=== PATIENT | male | born 1980 | race Caucasian/White ===

== ENCOUNTER 2017-09-27 04:36 | Emergency (ER) | payer OTHER ==
[~2017-09-27] VITALS: Ht 190.5 cm; Wt 109.4 kg
[2017-09-27 04:43] VITALS: TEMP 36.4; Ht 190.5 cm; Wt 109.4 kg
[2017-09-27] MEDS ORDERED: ONDANSETRON INJ 2 MG/ML 2 ML VIAL IV STA ×2 (05:04→06:18)
[2017-09-27] MEDS ORDERED: SODIUM CHLORIDE 0.9% 1000ML 1,000 ML IV STA (05:04)
[2017-09-27 05:48] LABS: BASO % 0.1 %; BASO ABS # 0.01 K/uL (0-0.2); EOS % 0.4 %; EOS ABS # 0.06 K/uL (0-0.5); HEMATOCRIT 48.7 % (42-52); IG# 0.04 K/uL (0.00-0.02); LYMPH % 2.3 %; LYMPH ABS # 0.36 K/uL (1.2-3.4); MEAN CELL VOLUME 87.1 fL (80-100); MEAN CORPUSCULAR HEMOGLOBIN 30.4 pg (25-34); MEAN CORPUSCULAR HGB CONC 34.9 g/dl (32-36); MEAN PLATELET VOLUME 9.3 fL (7.4-10.4); MONO % 1.9 %; MONO ABS # 0.29 K/uL (0.11-0.59); NEUT ABS # 14.71 K/uL (1.4-6.5); PLATELET COUNT 318 K/uL (130-400); RED CELL DISTRIBUTION WIDTH CV 12.6 % (11.5-14.5); RED CELL DISTRIBUTION WIDTH SD 40.3 fL (36.4-46.3); WHITE BLOOD COUNT 15.47 K/uL (4.8-10.8)
[2017-09-27 06:05] LABS: ALBUMIN 4.2 gm/dl (3.4-5.0); CALCIUM 9.1 mg/dl (8.5-10.1); CREATININE 1.04 mg/dl (0.60-1.40); POTASSIUM 3.8 mmol/L (3.5-5.1)
[2017-09-27 06:08] LABS: TOTAL PROTEIN 8.5 gm/dl (6.4-8.2)
[2017-09-27 06:14] LABS: INFLUENZA B ANTIGEN Neg for Influ B (NEG)
[2017-09-27] MEDS ORDERED: ACETAMINOPHEN 325 MG TAB PO STA (06:18)
--- NOTE | 2017-09-27 07:10 | DIAGNOSTIC IMAGING REPORT ---
PA CHEST WITH ABDOMINAL SERIES CLINICAL HISTORY: Nausea and vomiting. Dizziness. FINDINGS: A PA chest radiograph is obtained. No prior studies are available for comparison at the time of dictation. The cardiomediastinal silhouette is unremarkable. The lungs and pleural spaces are clear. No pneumothorax is seen. The bony thorax is grossly intact. Supine and erect abdominal radiographs are obtained. No prior studies are available for comparison at the time of dictation. There is a nonobstructed abdominal bowel gas pattern. No evidence of intraperitoneal free air is seen. There are no abnormal abdominal calcifications. The lumbosacral spine and bony pelvis appear intact. IMPRESSION: 1. No active disease in the chest. 2. Nonobstructed abdominal bowel gas pattern. Electronically signed by: Jeremy Yung M.D. 09/27/2017 7:08 AM Dictated Date/Time: 09/27/2017 7:08 AM
--- NOTE | 2017-09-27 07:21 | EMERGENCY ROOM VISIT NOTE ---
History Report prepared by Cherylibtrev: Jacob Zazueta Under the Supervision of: Dr. Ernestina New D.O. First contact with patient: 04:47 Chief Complaint: FLU LIKE SX Stated Complaint: UNCONTROLLABLE VOMITING,NAUSEA,DIZZINESS History of Present Illness The patient is a 37 year old male who presents to the Emergency Room with complaints of persistent generalized illness beginning shortly prior to arrival. The patient's symptoms include vomiting, nausea, diarrhea, chills, and diaphoresis. His symptoms began suddenly. The patient states that he has been vomiting every 5-8 minutes since he started. 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 He notes that he does not sleep a lot. The patient denies abdominal pain, urinary symptoms, chest pain, SOB, rashes, or fevers. He states that he has seen some blood with wiping, but feels that this from "excessive wiping" due to having loose stool for several weeks. He has no known exposure to C Diff. The patient denies recent travel, or medication changes. Source of History: patient Onset: Shortly prior to arrival Position: other (generalized ) Quality: other (illness) Timing: other (persistent) Associated Symptoms: + chills, + diaphoresis, + nausea, + vomiting, + diarrhea, No fevers, No chest pain, No SOB, No abdominal pain, No hematochezia, No urinary symptoms, No rash Review of Systems See HPI for pertinent positives & negatives. A total of 10 systems reviewed and were otherwise negative. Past Medical & Surgical Medical Problems: (1) No Known Active Medical Problems Family History No pertinent family history stated. Social History Smoking Status: Never Smoker Marital Status: Housing Status: lives with family Occupation Status: employed Current/Historical Medications No Active Prescriptions or Reported Meds Allergies Coded Allergies: No Known Allergies (Unverified , 09/27/17) Physical Exam Vital Signs Date Time Temp Pulse Resp B/P (MAP) Pulse Ox O2 Delivery O2 Flow Rate FiO2 09/27/17 09:01 126/65 09/27/17 08:44 82 21 94 09/27/17 08:31 118/68 09/27/17 08:14 82 20 95 09/27/17 08:01 119/63 09/27/17 08:00 84 18 119/63 96 Room Air 09/27/17 07:44 87 21 95 09/27/17 07:31 115/66 09/27/17 07:14 87 21 96 09/27/17 07:01 124/72 09/27/17 06:44 94 21 95 09/27/17 06:14 95 23 96 09/27/17 06:09 138/73 09/27/17 05:51 93 25 97 Room Air 09/27/17 05:36 87 20 98 09/27/17 05:31 132/72 09/27/17 05:21 89 21 97 09/27/17 05:06 94 23 99 09/27/17 05:01 150/91 09/27/17 04:54 137/78 09/27/17 04:54 85 23 137/78 97 Room Air 09/27/17 04:43 36.4 86 20 131/81 99 Room Air Physical Exam GENERAL: alert, ill appearing, well nourished, no distress, non-toxic EYE EXAM: normal conjunctiva, PERRL and EOM's grossly intact OROPHARYNX: no exudate, no erythema, lips, buccal mucosa, and tongue normal and mucous membranes are dry. NECK: supple, no nuchal rigidity, no adenopathy, non-tender LUNGS: Clear to auscultation. Normal chest wall mechanics HEART: no murmurs, S1 normal and S2 normal ABDOMEN: abdomen soft, non-tender, normo-active bowel sounds, no masses, no rebound or guarding. BACK: Back is symmetrical on inspection and there is no deformity, no midline tenderness, no CVA tenderness. SKIN: no rashes and no bruising UPPER EXTREMITIES: upper extremities are grossly normal. LOWER EXTREMITIES: No pitting edema. NEURO EXAM: Normal sensorium, cranial nerves II-XII grossly intact, normal speech, no gross weakness of arms, no gross weakness of legs. Medical Decision & Procedures ER Provider Diagnostic Interpretation: One View Chest X-ray interpreted by me: no cardiomegaly. No effusion. No wide mediastinum. No focal infiltrate. One View Abdomen X-ray interpreted by me: Scattered air fluid levels. No definite SBO. No free air. Laboratory Results 09/27/17 05:20 Red Blood Count 5.59, Mean Corpuscular Volume 87.1, Mean Corpuscular Hemoglobin 30.4, Mean Corpuscular Hemoglobin Concent 34.9, Mean Platelet Volume 9.3, Neutrophils (%) (Auto) 95.0, Lymphocytes (%) (Auto) 2.3, Monocytes (%) (Auto) 1.9, Eosinophils (%) (Auto) 0.4, Basophils (%) (Auto) 0.1, Neutrophils # (Auto) 14.71, Lymphocytes # (Auto) 0.36, Monocytes # (Auto) 0.29, Eosinophils # (Auto) 0.06, Basophils # (Auto) 0.01 09/27/17 05:20 Test 09/27/17 05:20 White Blood Count 15.47 K/uL (4.8-10.8) Red Blood Count 5.59 M/uL (4.7-6.1) Hemoglobin 17.0 g/dL (14.0-18.0) Hematocrit 48.7 % (42-52) Mean Corpuscular Volume 87.1 fL (80-100) Mean Corpuscular Hemoglobin 30.4 pg (25-34) Mean Corpuscular Hemoglobin Concent 34.9 g/dl (32-36) Platelet Count 318 K/uL (130-400) Mean Platelet Volume 9.3 fL (7.4-10.4) Neutrophils (%) (Auto) 95.0 % Lymphocytes (%) (Auto) 2.3 % Monocytes (%) (Auto) 1.9 % Eosinophils (%) (Auto) 0.4 % Basophils (%) (Auto) 0.1 % Neutrophils # (Auto) 14.71 K/uL (1.4-6.5) Lymphocytes # (Auto) 0.36 K/uL (1.2-3.4) Monocytes # (Auto) 0.29 K/uL (0.11-0.59) Eosinophils # (Auto) 0.06 K/uL (0-0.5) Basophils # (Auto) 0.01 K/uL (0-0.2) RDW Standard Deviation 40.3 fL (36.4-46.3) RDW Coefficient of Variation 12.6 % (11.5-14.5) Immature Granulocyte % (Auto) 0.3 % Immature Granulocyte # (Auto) 0.04 K/uL (0.00-0.02) Anion Gap 6.0 mmol/L (3-11) Est Creatinine Clear Calc Drug Dose 132.5 ml/min Estimated GFR () 107.3 Estimated GFR (Non- 92.6 BUN/Creatinine Ratio 17.9 (10-20) Calcium Level 9.1 mg/dl (8.5-10.1) Total Bilirubin 0.9 mg/dl (0.2-1) Aspartate Amino Transf (AST/SGOT) 26 U/L (15-37) Alanine Aminotransferase (ALT/SGPT) 41 U/L (12-78) Alkaline Phosphatase 67 U/L (45-117) Total Protein 8.5 gm/dl (6.4-8.2) Albumin 4.2 gm/dl (3.4-5.0) Globulin 4.3 gm/dl (2.5-4.0) Albumin/Globulin Ratio 1.0 (0.9-2) Lipase 163 U/L (73-393) Influenza Type A Antigen Neg for Influ A (NEG) Influenza Type B Antigen Neg for Influ B (NEG) Laboratory results per my review. Medications Administered Medications (Trade) Dose Ordered Sig/Ru Route Start Time Stop Time Status Last Admin Dose Admin Sodium Chloride 1,000 ml @ 999 mls/hr Q1H1M STAT IV 09/27/17 05:04 09/27/17 06:04 DC 09/27/17 05:29 999 MLS/HR Ondansetron HCl (Zofran Inj) 4 mg NOW STAT IV 09/27/17 05:04 09/27/17 05:06 DC 09/27/17 05:29 4 MG Ondansetron HCl (Zofran Inj) 4 mg NOW STAT IV 09/27/17 06:18 09/27/17 06:19 DC 09/27/17 06:26 4 MG Acetaminophen (Tylenol Tab) 650 mg NOW STAT PO 09/27/17 06:18 09/27/17 06:19 DC 09/27/17 06:25 650 MG ECG Indication: vomiting Rate (beats per minute): 82 Rhythm: normal sinus Findings: no acute ischemic change, no ectopy, other (Normal axis. Normal intervals. Baseline artifact. ) ED Course 0456: The patient was evaluated in room A3. A complete history and physical exam was performed. 0645: I reassessed the patient. He is feeling better, and will attempt a PO challenge. 0722: Upon reevaluation, the patient is feeling better. I discussed the findings and the treatment plan with the patient. He verbalizes agreement and understanding. He was discharged home. Medical Decision Differential diagnosis: Etiologies such as gastroenteritis, food borne illness, infections, appendicitis , diverticulitis, inflammatory bowel disease, obstruction, GI bleed, biliary pathology, as well as others were entertained. Patient improved here following administration of IV fluids and Zofran. Was able to start tolerating sips of by mouth at bedside. Vital signs stable throughout. Labs reassuring. Leukocytosis more likely stress reaction from vomiting and diarrhea. Have a low suspicion for any additional a culture medic infection, doubt bacteremia/sepsis. Patient has single episode of diarrhea here , no recurrent vomiting. Stool culture sent as precaution, C. difficile was resulted negative. Patient improved at time of discharge, and related with a steady gait and reporting improvement. Discussed pending cultures, use of Zofran at home which the patient already had, symptoms watch and return for, follow-up with family doctor as a precaution, he verbalized understanding was agreeable with plan. I feel most likely viral syndrome or food borne illness. Doubt occult GI bleed, ACS, mesenteric ischemia, other vascular etiology, colitis, diverticulitis, SBO, perforation. Medication Reconcilliation Current Medication List: was personally reviewed by me Blood Pressure Screening Patient's blood pressure: Elevated blood pressure Blood pressure disposition: Elevated BP felt to be situational Impression Primary Impression: Vomiting and diarrhea Additional Impression: Dehydration Scribe Attestation The scribe's documentation has been prepared under my direction and personally reviewed by me in its entirety. I confirm that the note above accurately reflects all work, treatment, procedures, and medical decision making performed by me. Departure Information Dispostion Home / Self-Care Prescriptions No Active Prescriptions or Reported Meds Referrals Kurtis Dowell D.O. (PCP) Patient Instructions [facility] Additional Instructions Please drink clear liquids at frequent intervals to stay well hydrated. You may use the zofran as needed for nausea. Please eat a bland diet until you are feeling better. If you have any worsening abdominal pain, have recurrent vomiting or worsening diarrhea, notice black or bloody stools, develop dizziness , chest pain, or you have any other new concerns, please return to the emergency room. Please follow-up with your family doctor as a precaution. If your cultures are positive, you will receive a phone call and additional medications may need to be called in for you. Problem Qualifiers
[2017-09-27 08:44] VITALS: PULSE 82; O2SAT 94
[2017-09-27 09:01] VITALS: BP 126/65
== END 2017-09-27 09:15 | disposition home or self-care (01) ==
LOC: C.EDB 04:38 → C.EDA 09:15
DX: E86.0 Dehydration (principal)